=== PATIENT | female | born 1955 | race Caucasian/White ===

== ENCOUNTER 2019-03-10 07:11 | Day surgery (SDC) | payer MEDICARE ==
[2019-03-08 11:48] LABS: BASOPHILS % (AUTO) 0.3 % (0-1); EOSINOPHILS # (AUTO) 0.3 X10'3 (0-0.9); HEMATOCRIT 42.9 % (35.0-45.0); HEMOGLOBIN 14.4 g/dl (12.0-16.0); LYMPHOCYTES # (AUTO) 2.9 X10'3 (1.1-4.8); LYMPHOCYTES % (AUTO) 39.2 % (21-51); MEAN CORPUSCULAR HGB CONC 33.6 g/dL (33.0-36.5); MEAN CORPUSCULAR VOLUME 92.1 FL (78-98); MEAN PLATELET VOLUME 9.4 FL (7.4-10.4); MONOCYTES # (AUTO) 0.6 X10'3 (0-0.9); MONOCYTES % (AUTO) 8.1 % (2-12); NEUTROPHILS # (AUTO) 3.6 X10'3 (1.8-7.7); NEUTROPHILS % (AUTO) 48.4 % (42-75); PLATELET COUNT 233 X10'3 (140-440); RED BLOOD COUNT 4.66 X10'6 (4.20-5.60); RED CELL DISTRIBUTION WIDTH 13.7 % (11.5-14.5); WHITE BLOOD COUNT 7.4 X10'3 (4.5-11.0)
[2019-03-08 11:52] LABS: PARTIAL THROMBOPLASTIN TIME 27 SECONDS (22-32)
[2019-03-08 11:56] LABS: ALANINE AMINOTRANSFERASE 50 U/L (12-78); ALBUMIN 3.9 G/DL (3.4-5.0); ALBUMIN/GLOBULIN RATIO 1.1 (1.1-1.5); ALKALINE PHOSPHATASE 148 IU/L (46-116); ANION GAP 7 (8-16); ASPARTATE AMINO TRANSFERASE 32 U/L (10-37); BILIRUBIN,TOTAL 0.6 MG/DL (0.1-1.0); BLOOD UREA NITROGEN 17 MG/DL (7-18); BUN/CREATININE RATIO 15.9 (6.6-38.0); CHLORIDE 108 MMOL/L (99-107); CREATININE 1.07 MG/DL (0.40-0.90); GLUCOSE 114 MG/DL (70-104); SODIUM 144 MMOL/L (135-145); TOTAL CARBON DIOXIDE 29.3 MMOL/L (24-32); TOTAL PROTEIN 7.5 G/DL (6.4-8.2); eGFR 51 ML/MIN
[2019-03-08 12:09] LABS: POTASSIUM 4.4 MMOL/L (3.5-5.1)
[2019-03-10] VITALS (12 sets, daily range): BP systolic 110–145; BP diastolic 58–76
[~2019-03-10] VITALS: Ht 177.8 cm; Wt 122.2 kg
[~2019-03-10 07:11] MED LIST: ASPI-1265 PO; ATOR10TA PO; HYDR-4383 PO; LISI40TA4 PO; METF500T20 PO
[2019-03-10] MEDS ORDERED: dextrose ORAL solution 15 GM/59 ML bottle PO PRN ×2 (08:00)
[2019-03-10] MEDS ORDERED: MESSAGE TO PHARMACY PO ONE (08:00)
[2019-03-10] MEDS ORDERED: dextrose 50%-water 50ml dispensing syringe IV PRN ×2 (08:00)
[2019-03-10] MEDS ORDERED: insulin Lispro (HumaLOG) vial - multi-dose SQ SCH (08:00)
[2019-03-10] MEDS ORDERED: LORazepam 0.5 MG tablet PO PRN (08:00)
[2019-03-10] MEDS ORDERED: diphenhydrAMINE 25mg capsule PO PRN (08:00)
[2019-03-10] MEDS ORDERED: nitroGLYCERIN 0.4mg SUBLingual tab SL PRN ×2 (08:00→11:50)
[2019-03-10] MEDS ORDERED: normal saline 1,000 ML IV SCH (08:00)
[2019-03-10] MEDS ORDERED: glucagon, human recombinant 1mg kit SUBCUT PRN (08:00)
[2019-03-10] MEDS ORDERED: ATOR40TA71 PO (08:41)
[2019-03-10] MEDS ORDERED: CHOL100046 PO (08:41)
[2019-03-10] MEDS ORDERED: MULT-955 PO (08:41)
[2019-03-10] MEDS ORDERED: ASCO-157 PO (08:41)
[2019-03-10] MEDS ORDERED: LISI1TAB28 PO (08:41)
[2019-03-10] MEDS ORDERED: LIDOcaine 1% (10mg/ml)w/preservative injection 20ml MDV ONE (09:57)
[2019-03-10] MEDS ORDERED: fentaNYL/PF 50MCG/1 ML 2ML syringe ONE (09:57)
[2019-03-10] MEDS ORDERED: midazolam 2 mg/2 ml injection ONE (09:57)
[2019-03-10] MEDS ORDERED: iohexol 350 MG/ML 50ML vial IV ONE (09:58)
[2019-03-10] MEDS ORDERED: iohexol 350MG/ML 100ml bottle IV ONE (09:58)
[2019-03-10] MEDS ORDERED: normal saline 1000ml 1,000 ML IV SCH (11:45)
[2019-03-10] MEDS ORDERED: ondansetron/PF 4mg/2ml inj IV PRN (11:45)
[2019-03-10] MEDS ORDERED: HYDROcodone/acetaminophen 5mg/325mg tablet PO PRN (11:45)
[2019-03-10] MEDS ORDERED: HYDROcodone/acetaminophen 10/325mg tab PO PRN (11:50)
[2019-03-10] MEDS ORDERED: proCHLORperazine 10 MG/2 ml inj IV PRN (11:50)
[2019-03-10] MEDS ORDERED: OXAZEpam 15mg capsule PO PRN (11:50)
[2019-03-10 19:56] LABS: HEMOGLOBIN A1C 6.8 % (4.5-6.2)
[2019-03-10] MEDS ORDERED: insulin glargine (Lantus) pen - multi-dose SQ SCH (21:00)
== END 2019-03-10 17:45 | disposition home or self-care (01) ==
LOC: SSTAY O 07:11
PROVIDERS: ATTEND Internal Medicine Cardiovascular Disease
DX: I25.10 Atherosclerotic heart disease of native coronary artery without angina pectoris (principal); I35.1 Nonrheumatic aortic (valve) insufficiency; E11.9 Type 2 diabetes mellitus without complications; I10 Essential (primary) hypertension; E78.5 Hyperlipidemia, unspecified; Z88.2 Allergy status to sulfonamides
CPT/HCPCS: 36415; 71046; 80053; 82948; 83036; 83880; 85025; 85610; 85730; 93005; 93458; 93567; C1769; J1644; J1815; J2001; J2250; J3010; J7030; Q0163; Q9967; 99152; 99153; A4620; A6258; C1760

== ENCOUNTER 2019-07-13 06:01 | Inpatient (IN) | payer MEDICARE ==
[2019-06-30 11:14] LABS: BASOPHILS % (AUTO) 0.6 % (0-1); EOSINOPHILS # (AUTO) 0.2 X10'3 (0-0.9); EOSINOPHILS % (AUTO) 2.2 % (0-6); HEMATOCRIT 44.1 % (35.0-45.0); HEMOGLOBIN 14.9 g/dl (12.0-16.0); LYMPHOCYTES # (AUTO) 2.6 X10'3 (1.1-4.8); LYMPHOCYTES % (AUTO) 37.7 % (21-51); MEAN CORPUSCULAR HEMOGLOBIN 31.4 PG (27.0-31.0); MEAN CORPUSCULAR HGB CONC 33.8 g/dL (33.0-36.5); MEAN PLATELET VOLUME 8.5 FL (7.4-10.4); MONOCYTES # (AUTO) 0.4 X10'3 (0-0.9); MONOCYTES % (AUTO) 5.9 % (2-12); NEUTROPHILS # (AUTO) 3.7 X10'3 (1.8-7.7); NEUTROPHILS % (AUTO) 53.6 % (42-75); PLATELET COUNT 260 X10'3 (140-440); RED BLOOD COUNT 4.74 X10'6 (4.20-5.60); RED CELL DISTRIBUTION WIDTH 13.6 % (11.5-14.5)
[2019-06-30 11:23] LABS: HEMOGLOBIN A1C 6.8 % (4.5-6.2)
[2019-06-30 11:28] LABS: ALBUMIN 3.9 G/DL (3.4-5.0); ALBUMIN/GLOBULIN RATIO 1.1 (1.1-1.5); ALKALINE PHOSPHATASE 135 IU/L (46-116); BLOOD UREA NITROGEN 29 MG/DL (7-18); BUN/CREATININE RATIO 26.6 (6.6-38.0); CALCIUM 10.5 MG/DL (8.5-10.1); CHLORIDE 106 MMOL/L (99-107); CREATININE 1.09 MG/DL (0.40-0.90); PRE OP ALT 26 U/L (30-65); PRE OP ANION GAP 8 (8-16); PRE OP AST 17 U/L (10-37); PRE OP BILIRUB, TOTAL 0.4 MG/DL (0.0-1.0); PRE OP GLUCOSE 139 MG/DL (70-104); PRE OP POTASSIUM 4.2 MMOL/L (3.4-5.1); PRE OP SODIUM 141 MMOL/L (135-145); TOTAL CARBON DIOXIDE 26.8 MMOL/L (24-32); TOTAL PROTEIN 7.5 G/DL (6.4-8.2); eGFR 50 ML/MIN
[2019-07-13] VITALS (19 sets, daily range): BP systolic 101–144; BP diastolic 45–80
[~2019-07-13] VITALS: Ht 180.3 cm; Wt 121.5 kg
[~2019-07-13 06:01] MED LIST changes: -ATOR10TA PO; +ATOR40TA71 PO; +CHOL100046 PO; -HYDR-4383 PO; +LISI1TAB28 PO; -LISI40TA4 PO; +MULT-955 PO; +cefazolin/dext.iso 2gm/100ml 100 ML IV ONE; +famotidine 20mg tablet PO ONE; +ringers solution, lacted 1,000 ML IV SCH; +tranexamic acid inj. 1,200 MG in normal saline 100ml IV soln 100 ML IV ONE; +vancomycin inj 1,500 MG in normal saline 300ml IV soln IV ONE
[2019-07-13] MEDS ORDERED: mineral oil 10ml sterile, topical TP ONE (08:23)
[2019-07-13] MEDS ORDERED: ROPIVAcaine 0.5% (5mg/ml) 30ml vial ONE ×2 (08:23→10:24)
[2019-07-13] MEDS ORDERED: ketorolac trometh. 30mg/ml inj. ONE (08:23)
[2019-07-13] MEDS ORDERED: tetracaine 1% (10mg/ml) pres. free inj. ONE (09:06)
[2019-07-13] MEDS ORDERED: MIDAZolam 1mg/ml 10ml vial ONE (09:08)
[2019-07-13] MEDS ORDERED: fentaNYL/PF 50MCG/1 ML 2ML syringe ONE (09:08)
[2019-07-13] MEDS ORDERED: morphine /PF 1mg/ml 10ml inj. ONE (09:08)
[2019-07-13] MEDS ORDERED: atropine 0.4 mg/ml 20ml vial ONE (09:24)
[2019-07-13] MEDS ORDERED: ringers solution, lacted 1,000 ML IV SCH (09:58)
[2019-07-13] MEDS ORDERED: ROPIVAcaine 0.2%/PF PUMP/bolus 550 ML ADDCANAL SCH (09:58)
[2019-07-13] MEDS ORDERED: morphine 4 MG/ML inj SYRINge IV PRN ×2 (10:00)
[2019-07-13] MEDS ORDERED: enalaprilat dihydrate 2.5mg/2ml vial IV PRN (10:00)
[2019-07-13] MEDS ORDERED: fentaNYL/PF 50MCG/1 ML 2ML syringe IV PRN ×2 (10:00)
[2019-07-13] MEDS ORDERED: hydrALAZINE 20mg/ml inj. IV PRN (10:00)
[2019-07-13] MEDS ORDERED: ondansetron/PF 4mg/2ml inj IV PRN (10:00)
[2019-07-13] MEDS ORDERED: ePHEDrine 50MG/ML INJ. ONE (10:56)
--- NOTE | 2019-07-13 11:15 | NUR ---
PACU DISCHARGE CRITERIA MET, REPORT GIVEN TO FLOOR. DENIES PAIN OR DISCOMFORT, TRANSFERRED TO ROOM IN STABLE GOOD CONDITION.
[2019-07-13] MEDS ORDERED: HYDROmorphone inj. 0.5 MG/0.5 ML DISP.SYRIN IV PRN (11:55)
[2019-07-13] MEDS ORDERED: acetaminophen 325mg tablet PO PRN (11:55)
[2019-07-13] MEDS ORDERED: bisacodyl 10mg suppository rectal RC PRN (11:55)
[2019-07-13] MEDS ORDERED: diphenhydrAMINE 25mg capsule PO PRN (11:55)
[2019-07-13] MEDS ORDERED: magnesium hydroxide 30ml (MOM) UD suspension PO PRN (11:55)
[2019-07-13] MEDS ORDERED: oxyCODONE IR 5mg (immed. release) tablet PO PRN (11:55)
[2019-07-13] MEDS ORDERED: HYDROmorphone 1 mg/ml syringe IV PRN (11:55)
--- NOTE | 2019-07-13 12:00 | NUR ---
ADMITTED TO PACU FROM OR ACCOMPANIED BY ANESTHESIA. INTIAL PHYSICAL ASSESSMENT DONE AND RECORDED. REPORT RECEIVED FROM ANESTHESIA.
[2019-07-13] MEDS: acetaminophen 325mg tablet PO SCH ×2 (14:00→19:42)
[2019-07-13] MEDS: ondansetron/PF 4mg/2ml inj IV PRN ×2 (14:39→23:54)
[2019-07-13] MEDS ORDERED: NORMAL SALINE IV ONE (15:00)
[2019-07-13] MEDS ORDERED: TRANEXAMIC ACID IV ONE (15:00)
[2019-07-13] MEDS ORDERED: metoclopramide 5 mg/ml inj IV PRN (16:35)
[2019-07-13] MEDS: potassium cl 20mEq in 1/2 NS 1,000 ML IV SCH (17:01)
[2019-07-13] MEDS: ceFAZolin 1GM/D5W- ADD-VANTAGE 50 ML IV SCH ×2 (17:01→23:46)
--- NOTE | 2019-07-13 18:00 | NUR ---
Problems reprioritized. Patient report given, questions answered & plan of care reviewed with DAVIDA VELEZ.
--- NOTE | 2019-07-13 18:25 | NUR ---
Received patient report from ROSIE Snyder. Assumed patient care.
[2019-07-13] MEDS: metFORMIN 500mg tablet PO SCH (19:42)
[2019-07-13] MEDS ORDERED: vancomycin/NS 1 GM ADD-VANTAGE 250 ML IV SCH (20:00)
[2019-07-13] MEDS: sennosides 8.6mg tablet PO SCH (20:50)
[2019-07-14 02:00] VITALS: BP 107/50
[2019-07-14] MEDS: acetaminophen 325mg tablet PO SCH ×4 (02:29→21:27)
[2019-07-14] MEDS: potassium cl 20mEq in 1/2 NS 1,000 ML IV SCH ×4 (05:00→19:53)
[2019-07-14] MEDS: diphenhydrAMINE 25mg capsule PO PRN ×2 (05:01→21:19)
[2019-07-14 06:00] VITALS: BP 111/53
[2019-07-14] MEDS ORDERED: metoclopramide 5 mg/ml inj IV PRN (06:00)
--- NOTE | 2019-07-14 06:08 | NUR ---
Patient report given, questions answered and plan of care reviewed with ROSIE Bro
[2019-07-14 06:20] LABS: BASOPHILS % (AUTO) 0.1 % (0-1); EOSINOPHILS % (AUTO) 0.4 % (0-6); HEMATOCRIT 34.5 % (35.0-45.0); HEMOGLOBIN 11.7 g/dl (12.0-16.0); LYMPHOCYTES # (AUTO) 1.5 X10'3 (1.1-4.8); LYMPHOCYTES % (AUTO) 21.8 % (21-51); MEAN CORPUSCULAR HEMOGLOBIN 31.3 PG (27.0-31.0); MEAN CORPUSCULAR HGB CONC 33.9 g/dL (33.0-36.5); MEAN CORPUSCULAR VOLUME 92.4 FL (78-98); MEAN PLATELET VOLUME 8.9 FL (7.4-10.4); MONOCYTES # (AUTO) 0.6 X10'3 (0-0.9); MONOCYTES % (AUTO) 9.1 % (2-12); NEUTROPHILS # (AUTO) 4.8 X10'3 (1.8-7.7); NEUTROPHILS % (AUTO) 68.6 % (42-75); PLATELET COUNT 191 X10'3 (140-440); RED BLOOD COUNT 3.73 X10'6 (4.20-5.60); RED CELL DISTRIBUTION WIDTH 13.6 % (11.5-14.5); WHITE BLOOD COUNT 7.1 X10'3 (4.5-11.0)
--- NOTE | 2019-07-14 06:30 | NUR ---
Patient in room ORTH[facility] 4014. I have received report from Megan and had the opportunity to ask questions and assume patient care.
[2019-07-14 06:49] LABS: ANION GAP 8 (8-16); CHLORIDE 106 MMOL/L (99-107); POTASSIUM 4.9 MMOL/L (3.5-5.1); SODIUM 139 MMOL/L (135-145); TOTAL CARBON DIOXIDE 25.5 MMOL/L (24-32)
[2019-07-14] MEDS: multivitamins, therapeutics tablet PO SCH (08:18)
[2019-07-14] MEDS: HYDROchlorothiazide 12.5mg capsule PO SCH (08:19)
[2019-07-14] MEDS: metFORMIN 500mg tablet PO SCH ×2 (08:19→21:26)
[2019-07-14] MEDS: atorvastatin 20mg tablet PO SCH (08:20)
[2019-07-14] MEDS: vitamin D (cholecalciferol) 1,000 unit tablet PO SCH (08:22)
[2019-07-14] MEDS: aspirin 325mg tablet PO SCH (08:22)
[2019-07-14] MEDS: lisinopril 20mg tablet PO SCH (09:00)
--- NOTE | 2019-07-14 09:01 | NUR ---
JAIDA RN SPOKE W/RUBÉN BECERRIL SAID TO ADMIN PT LISINIPRIL FOR PT EVEN IF SHE HAS A LOW BP AND A LOW HR, CONTINUE TO MONITOR
[2019-07-14 10:00] VITALS: BP 127/47
--- NOTE | 2019-07-14 11:09 | NUR ---
Student documentation: I have reviewed all interventions, assessments performed and documented by Sukhdeep Phelps. Student Medication Administration: For this medication-pass time frame, all medication were reviewed, dispensed, administered and documented per hospital policy by Sukhdeep Phelps.
--- NOTE | 2019-07-14 11:56 | NUR ---
I gave report to Adali VELEZ .
[2019-07-14 14:00] VITALS: BP 122/51
[2019-07-14] MEDS: oxyCODONE IR 5mg (immed. release) tablet PO PRN ×2 (14:13→21:21)
[2019-07-14 18:00] VITALS: BP 150/69
--- NOTE | 2019-07-14 18:23 | NUR ---
Problems reprioritized. Patient report given, questions answered & plan of care reviewed with Meena.
[2019-07-14] MEDS: sennosides 8.6mg tablet PO SCH (21:19)
[2019-07-14 22:00] VITALS: BP 131/54
[2019-07-15] MEDS: acetaminophen 325mg tablet PO SCH ×2 (02:39→08:28)
[2019-07-15] MEDS: potassium cl 20mEq in 1/2 NS 1,000 ML IV SCH (03:53)
[2019-07-15] MEDS: oxyCODONE IR 5mg (immed. release) tablet PO PRN ×3 (04:59→12:38)
[2019-07-15 06:30] VITALS: BP 150/69
[2019-07-15 06:55] LABS: BASOPHILS % (AUTO) 0.3 % (0-1); EOSINOPHILS # (AUTO) 0.1 X10'3 (0-0.9); EOSINOPHILS % (AUTO) 1.5 % (0-6); HEMATOCRIT 35.7 % (35.0-45.0); HEMOGLOBIN 12.2 g/dl (12.0-16.0); LYMPHOCYTES # (AUTO) 1.8 X10'3 (1.1-4.8); LYMPHOCYTES % (AUTO) 23.3 % (21-51); MEAN CORPUSCULAR HEMOGLOBIN 31.5 PG (27.0-31.0); MEAN CORPUSCULAR HGB CONC 34.2 g/dL (33.0-36.5); MEAN CORPUSCULAR VOLUME 92.1 FL (78-98); MONOCYTES # (AUTO) 0.8 X10'3 (0-0.9); MONOCYTES % (AUTO) 9.9 % (2-12); NEUTROPHILS # (AUTO) 4.9 X10'3 (1.8-7.7); PLATELET COUNT 193 X10'3 (140-440); RED BLOOD COUNT 3.87 X10'6 (4.20-5.60); RED CELL DISTRIBUTION WIDTH 13.1 % (11.5-14.5); WHITE BLOOD COUNT 7.6 X10'3 (4.5-11.0)
--- NOTE | 2019-07-15 07:02 | NUR ---
Patient in room ORTHO 4014. I have received report from Meena VELEZ and had the opportunity to ask questions and assume patient care.
[2019-07-15] MEDS ORDERED: ROPIVAcaine 0.2% (10 MG/5 ML) BOLUS INJECTION ADDCANAL PRN (07:25)
[2019-07-15] MEDS: HYDROchlorothiazide 12.5mg capsule PO SCH (08:23)
[2019-07-15] MEDS: lisinopril 20mg tablet PO SCH (08:24)
[2019-07-15] MEDS: aspirin 325mg tablet PO SCH (08:26)
[2019-07-15] MEDS: atorvastatin 20mg tablet PO SCH (08:26)
[2019-07-15] MEDS: multivitamins, therapeutics tablet PO SCH (08:26)
[2019-07-15] MEDS: metFORMIN 500mg tablet PO SCH (08:26)
[2019-07-15] MEDS: vitamin D (cholecalciferol) 1,000 unit tablet PO SCH (08:26)
[2019-07-15] MEDS ORDERED: ASPI-1 PO (09:08)
[2019-07-15 10:00] VITALS: BP 164/67
[2019-07-15] MEDS ORDERED: acetaminophen 325mg tablet PO PRN (11:55)
--- NOTE | 2019-07-15 12:00 | NUR ---
gave report to Alejandrina VELEZ
--- NOTE | 2019-07-15 12:40 | NUR ---
Joint replacement consult: Pt seen by VELIA for written/verbal high protein ed w/ RD contact information provided. Pt agrees to ensure high protein TIDWM; MD notified. Pending verification prior to sending on trays. Addendum: 07/15/19 at [address] Amended: Links added.
[2019-07-15] MEDS ORDERED: lactose-reduced food (Ensure High Protein) 237ml bottle PO SCH (13:00)
--- NOTE | 2019-07-15 13:40 | NUR ---
Patient taught all dressing and incisional care instructions and had new on-q ball refilled. Patient discharged and taken to vehicle ride in wheel chair.
== END 2019-07-15 13:40 | disposition home health service (06) | DRG 470 ==
LOC: PAS IN 06:01 → EDSTATUS 09:00 → ORTHO 4S 13:10
PROVIDERS: ADMIT Orthopaedic Surgery; ATTEND Orthopaedic Surgery
PROC: 3E0T3BZ Introduction of Anesthetic Agent into Peripheral Nerves and Plexi, Percutaneous Approach (ICD-10-PCS; 2019-07-13)
PROC: 8E0YXBZ Computer Assisted Procedure of Lower Extremity (ICD-10-PCS; 2019-07-13)
PROC: 8E0YXCZ Robotic Assisted Procedure of Lower Extremity (ICD-10-PCS; 2019-07-13)
PROC: 0SRC069 Replacement of Right Knee Joint with Oxidized Zirconium on Polyethylene Synthetic Substitute, Cemented, Open Approach (ICD-10-PCS; principal; 2019-07-13 09:00)
DX: M17.11 Unilateral primary osteoarthritis, right knee (principal); D62 Acute posthemorrhagic anemia; E66.01 Morbid (severe) obesity due to excess calories; E78.5 Hyperlipidemia, unspecified; R11.2 Nausea with vomiting, unspecified; Z68.37 Body mass index [BMI] 37.0-37.9, adult; E11.22 Type 2 diabetes mellitus with diabetic chronic kidney disease; I12.9 Hypertensive chronic kidney disease with stage 1 through stage 4 chronic kidney disease, or unspecified chronic kidney disease; N18.9 Chronic kidney disease, unspecified; Z88.2 Allergy status to sulfonamides; Z87.891 Personal history of nicotine dependence; Z79.899 Other long term (current) drug therapy; Z79.82 Long term (current) use of aspirin
CPT/HCPCS: 36415; 80051; 80053; 82948; 83036; 85025; 87081; 97110; 97116; 97162; 97530; 97535; A4215; A6454; A7000; C1713; C1758; C1776; G0378; J0461; J0690; J1170; J1885; J2250; J2270; J2405; J2765; J2795; J3010; J3370; J3480; J7120; Q0163

== ENCOUNTER 2020-01-06 07:05 | Observation (INO) | payer MEDICARE ==
[2020-01-04 14:25] LABS: BASOPHILS % (AUTO) 0.3 % (0-1); EOSINOPHILS # (AUTO) 0.4 X10'3 (0-0.9); EOSINOPHILS % (AUTO) 5.5 % (0-6); LYMPHOCYTES # (AUTO) 2.8 X10'3 (1.1-4.8); LYMPHOCYTES % (AUTO) 36.2 % (21-51); MEAN CORPUSCULAR HEMOGLOBIN 30.6 PG (27.0-31.0); MEAN CORPUSCULAR HGB CONC 33.5 g/dL (33.0-36.5); MEAN CORPUSCULAR VOLUME 91.5 FL (78-98); MEAN PLATELET VOLUME 8.8 FL (7.4-10.4); MONOCYTES # (AUTO) 0.5 X10'3 (0-0.9); MONOCYTES % (AUTO) 6.5 % (2-12); NEUTROPHILS % (AUTO) 51.5 % (42-75); PRE OP HEMATOCRIT 42.6 % (35.0-45.0); PRE OP HEMOGLOBIN 14.3 g/dL (12.0-16.0); PRE OP PLATELET COUNT 260 X10'3 (140-440); RED BLOOD COUNT 4.66 X10'6 (4.20-5.60); RED CELL DISTRIBUTION WIDTH 14.1 % (11.5-14.5)
[2020-01-04 14:41] LABS: ALBUMIN 3.7 G/DL (3.4-5.0); ALKALINE PHOSPHATASE 144 IU/L (46-116); BLOOD UREA NITROGEN 19 MG/DL (7-18); BUN/CREATININE RATIO 14.4 (6.6-38.0); CALCIUM 10.1 MG/DL (8.5-10.1); CHLORIDE 107 MMOL/L (99-107); CREATININE 1.32 MG/DL (0.40-0.90); PRE OP ALT 18 U/L (30-65); PRE OP ANION GAP 7 (8-16); PRE OP AST 13 U/L (10-37); PRE OP BILIRUB, TOTAL 0.3 MG/DL (0.0-1.0); PRE OP POTASSIUM 4.2 MMOL/L (3.4-5.1); PRE OP SODIUM 142 MMOL/L (135-145); TOTAL CARBON DIOXIDE 27.8 MMOL/L (24-32); TOTAL PROTEIN 7.3 G/DL (6.4-8.2); eGFR 40 ML/MIN
[2020-01-04 14:44] LABS: PRE OP GLUCOSE 127 MG/DL (70-104)
[2020-01-06] VITALS (23 sets, daily range): BP systolic 125–166; BP diastolic 61–83
[~2020-01-06] VITALS: Ht 180.3 cm; Wt 120.3 kg
[~2020-01-06 07:05] MED LIST changes: -ASPI-1265 PO; +LIDOcaine 1% 30ml preserv. free vial ONE; +METF-900 PO; -METF500T20 PO; -cefazolin/dext.iso 2gm/100ml 100 ML IV ONE; -tranexamic acid inj. 1,200 MG in normal saline 100ml IV soln 100 ML IV ONE; -vancomycin inj 1,500 MG in normal saline 300ml IV soln IV ONE
[2020-01-06] MEDS ORDERED: ASPI-100 PO (08:00)
[2020-01-06] MEDS ORDERED: cefazolin/dext.iso 2gm/50ml 50 ML IV ONE (08:55)
[2020-01-06] MEDS ORDERED: ringers solution, lacted 1,000 ML IV SCH (09:58)
[2020-01-06] MEDS ORDERED: meperidine/PF 25mg/ml syringe IV PRN ×3 (10:00)
[2020-01-06] MEDS ORDERED: morphine 4 MG/ML inj SYRINge IV PRN (10:00)
[2020-01-06] MEDS ORDERED: ondansetron/PF 4mg/2ml inj IV PRN ×2 (10:00→11:45)
[2020-01-06] MEDS ORDERED: morphine 2 MG/ML inj. syringe IV PRN (10:00)
[2020-01-06] MEDS ORDERED: proCHLORperazine 10 MG/2 ml inj IV PRN (10:00)
[2020-01-06] MEDS ORDERED: sevoflurane 250ml liquid IH ONE (10:17)
[2020-01-06] MEDS ORDERED: fentaNYL/PF 50MCG/1 ML 2ML syringe ONE (10:22)
[2020-01-06] MEDS ORDERED: midazolam 2 mg/2 ml injection ONE (10:22)
[2020-01-06] MEDS ORDERED: propofol inj 20 ML IV ONE (11:34)
--- NOTE | 2020-01-06 11:50 | NUR ---
Received from OR via BED, accompanied by Anesthesiologist DR SETH-- and report given by Anesthesiolgist. PATIENT A&OX4, DENIES PAIN, V/S WNL, NEUROVASCULAR CHECKS INTACT, 20G PIV RUE, SCD ON, RIGHT CHEST DRESSING CDI WITH 1LITER BAG APPLIED FOR PRESSURE PER MD. CXR AND DIGITAL IMAGING TECHNICIAN PAGED
--- NOTE | 2020-01-06 13:30 | NUR ---
PATIENT A&OX4, DENIES PAIN, V/S WNL, NEUROVASCULAR CHECKS INTACT, 20G PIV RUE, SCD ON, RIGHT CHEST DRESSING CDI WITH 1LITER BAG APPLIED FOR PRESSURE PER MD. PATIENT TAKEN TO 3021 WITH ALL BELONGINGS AND HOOKED UP TO MONITORS IN ROOM AND REPORT GIVEN TO RN WHO HAS TAKEN OVER PATIENT CARE.
[2020-01-06] MEDS ORDERED: diphenhydrAMINE 25mg capsule PO ONE (14:10)
[2020-01-06] MEDS ORDERED: normal saline 1000ml 1,000 ML IV SCH (14:10)
[2020-01-06] MEDS ORDERED: LORazepam 1 MG tablet PO ONE (14:10)
[2020-01-06] MEDS ORDERED: ceFAZolin inj. 1,000 MG in dextrose 5%-water 50ml 50 ML IV SCH (16:00)
[2020-01-06] MEDS: HYDROcodone/acetaminophen 10/325mg tab PO PRN ×2 (16:18→20:35)
[2020-01-06] MEDS: metFORMIN 500mg tablet PO SCH (20:35)
[2020-01-07] MEDS: ceFAZolin 1GM/D5W- ADD-VANTAGE 50 ML IV SCH ×2 (00:32→10:33)
[2020-01-07] MEDS: HYDROcodone/acetaminophen 10/325mg tab PO PRN (01:43)
[2020-01-07 02:00] VITALS: BP 126/71
--- NOTE | 2020-01-07 02:06 | NUR ---
MOVED TO MED SURG 345 WITH BELONGINGS
[2020-01-07 06:05] LABS: BASOPHILS % (AUTO) 0.1 % (0-1); EOSINOPHILS # (AUTO) 0.3 X10'3 (0-0.9); EOSINOPHILS % (AUTO) 3.8 % (0-6); HEMATOCRIT 39.9 % (35.0-45.0); HEMOGLOBIN 13.1 g/dl (12.0-16.0); LYMPHOCYTES # (AUTO) 2.3 X10'3 (1.1-4.8); LYMPHOCYTES % (AUTO) 28.1 % (21-51); MEAN CORPUSCULAR HEMOGLOBIN 30.5 PG (27.0-31.0); MEAN CORPUSCULAR HGB CONC 32.9 g/dL (33.0-36.5); MEAN CORPUSCULAR VOLUME 92.5 FL (78-98); MEAN PLATELET VOLUME 8.7 FL (7.4-10.4); MONOCYTES # (AUTO) 0.6 X10'3 (0-0.9); MONOCYTES % (AUTO) 7.7 % (2-12); NEUTROPHILS # (AUTO) 4.9 X10'3 (1.8-7.7); NEUTROPHILS % (AUTO) 60.3 % (42-75); PLATELET COUNT 206 X10'3 (140-440); RED BLOOD COUNT 4.32 X10'6 (4.20-5.60); RED CELL DISTRIBUTION WIDTH 14.1 % (11.5-14.5); WHITE BLOOD COUNT 8.2 X10'3 (4.5-11.0)
--- NOTE | 2020-01-07 06:29 | NUR ---
Patient in room [facility] 357. I have received report from Elvia VELEZ and had the opportunity to ask questions and assume patient care.
--- NOTE | 2020-01-07 06:37 | NUR ---
Problems reprioritized. Patient report given, questions answered & plan of care reviewed with Mary VELEZ.
[2020-01-07 07:00] VITALS: BP 121/70
[2020-01-07] MEDS ORDERED: multivitamins, therapeutics tablet PO SCH (08:00)
[2020-01-07] MEDS ORDERED: lisinopril 20mg tablet PO SCH (08:00)
[2020-01-07] MEDS ORDERED: atorvastatin 20mg tablet PO SCH (08:00)
[2020-01-07] MEDS ORDERED: HYDROchlorothiazide 12.5mg capsule PO SCH (08:00)
[2020-01-07] MEDS ORDERED: vitamin D (cholecalciferol) 1,000 unit tablet PO SCH (08:00)
[2020-01-07] MEDS ORDERED: aspirin 325mg tablet PO SCH (08:30)
[2020-01-07 09:10] VITALS: BP_SYST 121
[2020-01-07] MEDS: metFORMIN 500mg tablet PO SCH (09:11)
--- NOTE | 2020-01-07 13:24 | NUR ---
Discharge instructions given to patient, patient verbalized understanding of all instructions made. Peripheral IV catheter removed, tip intact. Pacemaker temporary card given to patient, advised patient to put it in her wallet and to carry it with her at all times. Instructed patient to ensure she has all her belongings with her before leaving the hospital.
== END 2020-01-07 13:36 | disposition home or self-care (01) ==
LOC: PAS 07:05 → PCU 3S 11:42 → SUR 3N 01-07 02:00
PROVIDERS: ADMIT Surgery; ATTEND Surgery
DX: I49.5 Sick sinus syndrome (principal); I48.91 Unspecified atrial fibrillation; I10 Essential (primary) hypertension; R06.02 Shortness of breath; R42 Dizziness and giddiness; E11.9 Type 2 diabetes mellitus without complications; E66.09 Other obesity due to excess calories; Z68.30 Body mass index [BMI] 30.0-30.9, adult
CPT/HCPCS: 33208; 36415; 71045; 71048; 76000; 76937; 80053; 82948; 83036; 85025; 85610; 85730; 87081; 93005; 96365; 96366; 96375; C1785; G0378; J0690; J2001; J2175; J2250; J2405; J2704; J3010; J7060; J7120; A4215; A4565; A4618; A6258; A6449; A7000

== ENCOUNTER 2020-12-25 15:06 | Outpatient (CLI) | payer MEDICARE ==
[~2020-12-25 15:06] MED LIST changes: +ASPI-100 PO; -LIDOcaine 1% 30ml preserv. free vial ONE; -LISI1TAB28 PO; +LISI1TAB51 PO; -famotidine 20mg tablet PO ONE; -ringers solution, lacted 1,000 ML IV SCH
== END 2020-12-25 23:59 | disposition home or self-care (01) ==
LOC: CARD DIAG 15:06
PROVIDERS: ATTEND Internal Medicine Cardiovascular Disease
DX: I08.3 Combined rheumatic disorders of mitral, aortic and tricuspid valves (principal)
CPT/HCPCS: 93306

== ENCOUNTER 2021-04-11 15:02 | Inpatient (IN) | payer MEDICARE ==
[~2021-04-11] VITALS: Ht 180.3 cm; Wt 134.2 kg
[2021-04-11] MEDS ORDERED: acetaminophen 325mg tablet PO STA (15:27)
[2021-04-11] MEDS ORDERED: morphine 4 MG/ML inj SYRINge IV PRN (15:30)
[2021-04-11] MEDS ORDERED: ondansetron/PF 4mg/2ml inj IV ONE (15:30)
[2021-04-11] MEDS ORDERED: normal saline 1000ML IV soln IV ONE (15:30)
[2021-04-11 16:12] LABS: BASOPHILS % (AUTO) 0.2 % (0-1); EOSINOPHILS % (AUTO) 0 % (0-6); HEMATOCRIT 43.2 % (35.0-45.0); HEMOGLOBIN 14.5 g/dl (12.0-16.0); LYMPHOCYTES # (AUTO) 1.2 X10'3 (1.1-4.8); LYMPHOCYTES % (AUTO) 9.2 % (21-51); MEAN CORPUSCULAR HEMOGLOBIN 30.6 PG (27.0-31.0); MEAN CORPUSCULAR HGB CONC 33.5 g/dL (33.0-36.5); MEAN CORPUSCULAR VOLUME 91.3 FL (78-98); MEAN PLATELET VOLUME 8.9 FL (7.4-10.4); MONOCYTES # (AUTO) 1.1 X10'3 (0-0.9); MONOCYTES % (AUTO) 8.5 % (2-12); NEUTROPHILS # (AUTO) 10.8 X10'3 (1.8-7.7); NEUTROPHILS % (AUTO) 82.1 % (42-75); PLATELET COUNT 309 X10'3 (140-440); RED BLOOD COUNT 4.73 X10'6 (4.20-5.60); RED CELL DISTRIBUTION WIDTH 13.5 % (11.5-14.5); WHITE BLOOD COUNT 13.1 X10'3 (4.5-11.0)
[2021-04-11 16:24] LABS: ALANINE AMINOTRANSFERASE 331 U/L (12-78); ALBUMIN 3.5 G/DL (3.4-5.0); ALKALINE PHOSPHATASE 450 IU/L (46-116); ANION GAP 16 (8-16); ASPARTATE AMINO TRANSFERASE 168 U/L (10-37); BILIRUBIN,TOTAL 5.5 MG/DL (0.1-1.0); BLOOD UREA NITROGEN 10 MG/DL (7-18); BUN/CREATININE RATIO 7.6 (6.6-38.0); CALCIUM 10.2 MG/DL (8.5-10.1); CHLORIDE 98 MMOL/L (99-107); CREATININE 1.31 MG/DL (0.40-0.90); GLUCOSE 264 MG/DL (70-104); LIPASE 182 U/L (73-393); SODIUM 136 MMOL/L (135-145); TOTAL CARBON DIOXIDE 22.5 MMOL/L (24-32); eGFR 40 ML/MIN
[2021-04-11 16:28] LABS: ALBUMIN/GLOBULIN RATIO 0.8 (1.1-1.5); POTASSIUM 3.8 MMOL/L (3.5-5.1); TOTAL PROTEIN 8.1 G/DL (6.4-8.2)
[2021-04-11] MEDS ORDERED: morphine 4 MG/ML inj SYRINge IV ONE (16:40)
[2021-04-11] MEDS ORDERED: piperacillin/tazo 3.375gm/50ml 50 ML IV ONE (16:40)
[2021-04-11] MEDS ORDERED: diphenhydrAMINE 50 mg/ml inj IV ONE (17:15)
--- NOTE | 2021-04-11 17:47 | NUR ---
pt will be going for ercp tomm around 1500.
[2021-04-11] MEDS ORDERED: METF-436 PO (17:53)
[2021-04-11] MEDS ORDERED: ASPI81TA47 PO (17:53)
[2021-04-11] MEDS ORDERED: ASCO500C17 PO (17:53)
[2021-04-11] MEDS ORDERED: LEVO88TA39 PO (17:53)
[2021-04-11] MEDS ORDERED: dextrose ORAL solution 15 GM/59 ML bottle PO PRN ×2 (18:05)
[2021-04-11] MEDS: normal saline 1000ml 1,000 ML IV SCH (18:05)
[2021-04-11] MEDS ORDERED: magnesium 2GM in 50ml NS 50 ML IV PRN (18:05)
[2021-04-11] MEDS ORDERED: magnesium 4gm in 100ml NS 100 ML IV PRN (18:05)
[2021-04-11] MEDS ORDERED: potassium Cl 40MEQ/1/2NS 520ml 520 ML IV PRN ×2 (18:05)
[2021-04-11] MEDS ORDERED: MESSAGE TO PHARMACY PO ONE (18:05)
[2021-04-11] MEDS ORDERED: dextrose 50%-water 50ml dispensing syringe IV PRN ×2 (18:05)
[2021-04-11] MEDS ORDERED: glucagon, human recombinant 1mg kit SUBCUT PRN (18:05)
[2021-04-11] MEDS ORDERED: acetaminophen 325mg tablet PO PRN (18:05)
[2021-04-11] MEDS ORDERED: potassium Cl 20 mEq SR tablet PO PRN ×2 (18:05)
[2021-04-11] MEDS ORDERED: insulin Lispro (HumaLOG) vial - multi-dose SQ SCH (18:05)
[2021-04-11] MEDS ORDERED: hydrALAZINE 20mg/ml inj. IV PRN (18:35)
[2021-04-11 18:42] LABS: HEMOGLOBIN A1C 7.9 % (4.5-6.2)
[2021-04-11] MEDS: K and/or MAG REPLACEMENT MC SCH (20:00)
[2021-04-11 20:48] LABS: CLARITY,URINE CLEAR (Clear); COLOR,URINE AMBER (Yellow); UA COLLECTION TYPE NON-SPECIFIED
[2021-04-11 20:53] LABS: WBC,URINE 0-4 /HPF (0-4)
[2021-04-11 20:54] LABS: BACTERIA,URINE NONE SEEN /HPF (Neg); RBC,URINE NONE SEEN /HPF (0-2); SQUAMOUS EPITHELIAL CELL,UR FEW /LPF (FEW)
[2021-04-11] MEDS: enoxaparin 40mg/0.4ml syringe SQ SCH (21:09)
[2021-04-11] MEDS: insulin glargine (Lantus) pen - multi-dose SQ SCH (21:17)
[2021-04-12] VITALS (12 sets, daily range): BP systolic 101–150; BP diastolic 49–103
[2021-04-12] MEDS: piperacillin/tazo 4.5gm/100ml 100 ML IV SCH ×4 (00:52→23:54)
[2021-04-12] MEDS: normal saline 1000ml 1,000 ML IV SCH ×2 (04:05→14:00)
[2021-04-12 04:36] LABS: BASOPHILS % (AUTO) 0.1 % (0-1); EOSINOPHILS % (AUTO) 0.3 % (0-6); HEMATOCRIT 38.6 % (35.0-45.0); HEMOGLOBIN 12.8 g/dl (12.0-16.0); LYMPHOCYTES # (AUTO) 1.4 X10'3 (1.1-4.8); LYMPHOCYTES % (AUTO) 15.3 % (21-51); MEAN CORPUSCULAR HEMOGLOBIN 30.5 PG (27.0-31.0); MEAN CORPUSCULAR HGB CONC 33.1 g/dL (33.0-36.5); MEAN CORPUSCULAR VOLUME 92.3 FL (78-98); MONOCYTES # (AUTO) 1.2 X10'3 (0-0.9); MONOCYTES % (AUTO) 13.2 % (2-12); NEUTROPHILS # (AUTO) 6.4 X10'3 (1.8-7.7); NEUTROPHILS % (AUTO) 71.1 % (42-75); PLATELET COUNT 252 X10'3 (140-440); RED BLOOD COUNT 4.19 X10'6 (4.20-5.60); RED CELL DISTRIBUTION WIDTH 13.3 % (11.5-14.5); WHITE BLOOD COUNT 9.1 X10'3 (4.5-11.0)
[2021-04-12 04:54] LABS: ALANINE AMINOTRANSFERASE 246 U/L (12-78); ALBUMIN 2.7 G/DL (3.4-5.0); ALKALINE PHOSPHATASE 421 IU/L (46-116); ANION GAP 11 (8-16); ASPARTATE AMINO TRANSFERASE 144 U/L (10-37); BILIRUBIN,TOTAL 5.3 MG/DL (0.1-1.0); BLOOD UREA NITROGEN 12 MG/DL (7-18); BUN/CREATININE RATIO 8.6 (6.6-38.0); CALCIUM 9.7 MG/DL (8.5-10.1); CHLORIDE 101 MMOL/L (99-107); CREATININE 1.39 MG/DL (0.40-0.90); GLUCOSE 186 MG/DL (70-104); SODIUM 139 MMOL/L (135-145); TOTAL CARBON DIOXIDE 27.5 MMOL/L (24-32); eGFR 38 ML/MIN
[2021-04-12 05:09] LABS: ALBUMIN/GLOBULIN RATIO 0.7 (1.1-1.5); POTASSIUM 3.5 MMOL/L (3.5-5.1); TOTAL PROTEIN 6.8 G/DL (6.4-8.2)
--- NOTE | 2021-04-12 06:04 | NUR ---
standing scale weight 124.4
[2021-04-12] MEDS: ondansetron/PF 4mg/2ml inj IV PRN ×2 (06:09→17:53)
[2021-04-12] MEDS: K and/or MAG REPLACEMENT MC SCH ×2 (08:00→20:00)
--- NOTE | 2021-04-12 09:38 | NUR ---
Noted pt with a low BMI of 17.5 using documented wt of 56.82 kg. Per red leader standing scale weight 124.4 though no unit of measurement (kg vs lbs). Per scaled wt hx in EMR pt 121.5 kg. Likely wt in red leader meant to be in kg given more consistent with wt hx in EMR, resulting in BMI of 38. Will continue to follow. Addendum: 04/12/21 at [address] Amended: Links added.
[2021-04-12] MEDS ORDERED: glucagon, human recombinant 1mg kit ONE (15:18)
[2021-04-12] MEDS ORDERED: iohexol 300 MG/1 ML 50ml polymer ONE (15:18)
[2021-04-12] MEDS ORDERED: morphine 4 MG/ML inj SYRINge IV PRN (15:25)
[2021-04-12] MEDS ORDERED: morphine 2 MG/ML inj. syringe IV PRN (15:25)
[2021-04-12] MEDS ORDERED: meperidine/PF 25mg/ml syringe IV PRN ×3 (15:25)
[2021-04-12] MEDS ORDERED: ringers solution, lacted 1,000 ML IV SCH (15:25)
[2021-04-12] MEDS ORDERED: ondansetron/PF 4mg/2ml inj IV PRN (15:25)
[2021-04-12] MEDS ORDERED: proCHLORperazine 10 MG/2 ml inj IV PRN (15:25)
[2021-04-12] MEDS ORDERED: sevoflurane 250ml liquid IH ONE (15:54)
[2021-04-12] MEDS ORDERED: midazolam 1 mg/ML 2ml injection ONE (15:57)
[2021-04-12] MEDS ORDERED: propofol inj 20 ML IV ONE (15:57)
[2021-04-12] MEDS ORDERED: fentaNYL/PF 50MCG/1 ML 2ML syringe ONE (15:57)
[2021-04-12] MEDS ORDERED: rocuronium 10mg/ml inj IV ONE (16:55)
[2021-04-12] MEDS ORDERED: neostigmine methylsulfate 1 MG/ML 10ml vial ONE (16:55)
[2021-04-12] MEDS ORDERED: glycopyrrolate 0.2mg/ml inj ONE (16:56)
--- NOTE | 2021-04-12 17:08 | NUR ---
ASSUME CARE PT AWAKE VSS NO DISTRESS IV RAC 20G PATIENT. CONT TO MONITOR. Addendum: 04/12/21 at 1718 by Silvia Boo RN Amended: Links added.
--- NOTE | 2021-04-12 17:29 | NUR ---
PT AWAKE ALERT VSS NO DISTRESS NO PAIN THOMAS PO'S MEETS CRITERIA TO DC TO ROOM REPORT CALLED. Addendum: 04/12/21 at 1730 by Silvia Boo RN Amended: Links added.
--- NOTE | 2021-04-12 17:29 | NUR ---
PT MORE AWAKE VSS NO C/O THOMAS SINCLAIR'S MEETS CRITERIA TO DC TO ROOM REP Addendum: 04/12/21 at 1730 by Silvia Boo RN Amended: Links added.
--- NOTE | 2021-04-12 17:34 | NUR ---
GOT REPORT FROM RECOVERY, AWAITING PATIENTS ARRIVAL TO 4009C, MOVED FROM SURGICAL 349B
--- NOTE | 2021-04-12 18:44 | NUR ---
REPORT GIVEN TO JT. PT DOING WELL AT THIS TIME, NO MORE NAUSEA. CLEAR LIQUID DIET ORDERED. NPO AFTER MN
[2021-04-12] MEDS: enoxaparin 40mg/0.4ml syringe SQ SCH (21:16)
[2021-04-12] MEDS: insulin glargine (Lantus) pen - multi-dose SQ SCH (21:18)
[2021-04-13] VITALS (14 sets, daily range): BP systolic 107–183; BP diastolic 57–88
[2021-04-13] MEDS: normal saline 1000ml 1,000 ML IV SCH ×3 (00:05→20:05)
--- NOTE | 2021-04-13 01:50 | NUR ---
Patient in room ORTH[facility] 4009. I have received report from Adali VELEZ and had the opportunity to ask questions and assume patient care.
--- NOTE | 2021-04-13 06:32 | NUR ---
Problems reprioritized. Patient report given, questions answered & plan of care reviewed with Flora VELEZ.
[2021-04-13 06:37] LABS: BASOPHILS % (AUTO) 0.2 % (0-1); EOSINOPHILS # (AUTO) 0.1 X10'3 (0-0.9); HEMATOCRIT 33.7 % (35.0-45.0); HEMOGLOBIN 11.4 g/dl (12.0-16.0); LYMPHOCYTES # (AUTO) 1.3 X10'3 (1.1-4.8); LYMPHOCYTES % (AUTO) 23.2 % (21-51); MEAN CORPUSCULAR HEMOGLOBIN 30.9 PG (27.0-31.0); MEAN CORPUSCULAR HGB CONC 33.8 g/dL (33.0-36.5); MEAN CORPUSCULAR VOLUME 91.3 FL (78-98); MEAN PLATELET VOLUME 8.6 FL (7.4-10.4); MONOCYTES # (AUTO) 0.6 X10'3 (0-0.9); MONOCYTES % (AUTO) 10.6 % (2-12); NEUTROPHILS # (AUTO) 3.7 X10'3 (1.8-7.7); PLATELET COUNT 230 X10'3 (140-440); RED BLOOD COUNT 3.69 X10'6 (4.20-5.60); RED CELL DISTRIBUTION WIDTH 13.2 % (11.5-14.5); WHITE BLOOD COUNT 5.7 X10'3 (4.5-11.0)
--- NOTE | 2021-04-13 06:37 | NUR ---
Patient in room ORTH[facility] 4009. I have received report from ROSIE Joyce and had the opportunity to ask questions and assume patient care.
[2021-04-13 06:59] LABS: ALANINE AMINOTRANSFERASE 187 U/L (12-78); ALBUMIN 2.2 G/DL (3.4-5.0); ALBUMIN/GLOBULIN RATIO 0.6 (1.1-1.5); ALKALINE PHOSPHATASE 373 IU/L (46-116); ANION GAP 9 (8-16); ASPARTATE AMINO TRANSFERASE 105 U/L (10-37); BILIRUBIN,TOTAL 3.1 MG/DL (0.1-1.0); BLOOD UREA NITROGEN 14 MG/DL (7-18); BUN/CREATININE RATIO 9.3 (6.6-38.0); CALCIUM 9.2 MG/DL (8.5-10.1); CHLORIDE 108 MMOL/L (99-107); CREATININE 1.51 MG/DL (0.40-0.90); GLUCOSE 122 MG/DL (70-104); MAGNESIUM 2.1 MG/DL (1.5-2.4); POTASSIUM 3.5 MMOL/L (3.5-5.1); SODIUM 142 MMOL/L (135-145); TOTAL CARBON DIOXIDE 25.5 MMOL/L (24-32); TOTAL PROTEIN 6.1 G/DL (6.4-8.2); eGFR 34 ML/MIN
[2021-04-13] MEDS: piperacillin/tazo 4.5gm/100ml 100 ML IV SCH ×2 (07:28→16:00)
[2021-04-13] MEDS: K and/or MAG REPLACEMENT MC SCH ×2 (08:00→20:00)
[2021-04-13] MEDS ORDERED: hydrOXYzine 25 MG tablet PO PRN (10:30)
--- NOTE | 2021-04-13 12:02 | NUR ---
DM Consult: Pt admit DX sepsis r/t cholangitis w/ common bile duct stones s/p ERCP stone extraction and stent placement per EMR. Pt to OR today for gallbladder removal per EMR. Hx T2DM A1C 7.9; written DM ed w/ RD contact information placed in pt chart. Noted pt initial wt 56.82kg not scaled error w/ first scaled wt 134.2kg consistent w/ prior wt hx making BMI 41. Clear liquid diet started last night w/ 100% first meal. Will monitor for diet advancement and additional protein needs this admit. Rec: 1. advance diet as medically indicated to carb controlled/heart healthy 2. monitor for ONS needs once diet advances pending PO hx 3. routine bowel care 4. weekly wts Addendum: 04/13/21 at [address] Amended: Links added.
[2021-04-13] MEDS ORDERED: INDOCYANINE GREEN 25 MG/10 ML VIAL IV ONE (13:00)
[2021-04-13] MEDS ORDERED: proCHLORperazine 10 MG/2 ml inj IV PRN (13:45)
[2021-04-13] MEDS ORDERED: meperidine/PF 25mg/ml syringe IV PRN ×3 (13:45)
[2021-04-13] MEDS ORDERED: morphine 4 MG/ML inj SYRINge IV PRN (13:45)
[2021-04-13] MEDS ORDERED: acetaminophen 1,000mg/100ml IV 100 ML IV PRN (13:45)
[2021-04-13] MEDS ORDERED: ringers solution, lacted 1,000 ML IV SCH (13:45)
[2021-04-13] MEDS ORDERED: hydrALAZINE 20mg/ml inj. IV PRN (13:45)
[2021-04-13] MEDS ORDERED: labetalol 20mg/4ml (5mg/ml) syringe IV PRN (13:45)
[2021-04-13] MEDS ORDERED: morphine 2 MG/ML inj. syringe IV PRN (13:45)
[2021-04-13] MEDS ORDERED: ondansetron/PF 4mg/2ml inj IV PRN (13:45)
[2021-04-13] MEDS ORDERED: BUPIVAcaine 0.5% inj/PF 30 ML ONE (13:48)
[2021-04-13] MEDS ORDERED: LIDOcaine 1% 30ml preserv. free vial ONE (13:48)
--- NOTE | 2021-04-13 15:19 | NUR ---
Pt transferred to OR via hospital bed. Belongings left in room 4009C.
[2021-04-13] MEDS ORDERED: sevoflurane 250ml liquid IH ONE (15:34)
[2021-04-13] MEDS ORDERED: midazolam 1 mg/ML 2ml injection ONE (15:38)
[2021-04-13] MEDS ORDERED: fentaNYL /PF 50mcg/ml 5ml ampule ONE (15:41)
[2021-04-13] MEDS ORDERED: famotidine/PF 10 mg/ml inj IV ONE (15:45)
[2021-04-13] MEDS ORDERED: rocuronium 10mg/ml inj IV ONE (15:55)
[2021-04-13] MEDS ORDERED: LIDOcaine 2% (20mg/ml) 5ml vial ONE (15:55)
[2021-04-13] MEDS ORDERED: propofol inj 20 ML IV ONE (15:55)
[2021-04-13] MEDS ORDERED: dexamethasone sod phosphate 4mg/ml inj. ONE (16:04)
[2021-04-13] MEDS ORDERED: ondansetron/PF 4mg/2ml inj ONE (16:04)
[2021-04-13] MEDS ORDERED: sugammadex 200mg/2ml injection IV ONE (16:47)
--- NOTE | 2021-04-13 17:09 | NUR ---
ASSUME CARE VSS NO DISTRESS, LAP SITES TO ABD CDI, DENIES PAIN, IV TO R ARM CDI, PATIENT. CONT TO MONITOR. ACCU CHECK 117 Addendum: 04/13/21 at 1736 by Silvia Boo RN Amended: Links added.
[2021-04-13] MEDS ORDERED: HYDROcodone/acetaminophen 5mg/325mg tablet PO PRN (17:25)
[2021-04-13] MEDS: ondansetron/PF 4mg/2ml inj IV PRN (17:32)
--- NOTE | 2021-04-13 17:39 | NUR ---
PT MORE AWAKE VSS NO PAIN STATES NAUSEA BETTER MEETS CRITERIA TO DC TO ROOM CALLING REPORT TO ROSIE Addendum: 04/13/21 at 1740 by Silvia Boo RN Amended: Links added.
--- NOTE | 2021-04-13 17:50 | NUR ---
PRIOR TO [id number] TO ROOM PT C/O NAUSEA COMPAZINE 5MG IV PER ORDER Addendum: 04/13/21 at 1752 by Silvia Boo RN Amended: Links added.
--- NOTE | 2021-04-13 18:13 | NUR ---
Pt back from OR
--- NOTE | 2021-04-13 18:27 | NUR ---
Problems reprioritized. Patient report given, questions answered & plan of care reviewed with ROSIE Joyce.
[2021-04-13] MEDS: HYDROmorphone inj. 0.5 MG/0.5 ML DISP.SYRIN IV PRN (19:18)
[2021-04-13] MEDS: lactobacillus rhamnosus 10,000 MMU CELLS/CAPSULE PO SCH (20:00)
[2021-04-13] MEDS: enoxaparin 40mg/0.4ml syringe SQ SCH (20:00)
[2021-04-13] MEDS: insulin glargine (Lantus) pen - multi-dose SQ SCH (21:33)
[2021-04-14] MEDS: HYDROmorphone inj. 0.5 MG/0.5 ML DISP.SYRIN IV PRN (00:08)
[2021-04-14] MEDS: normal saline 1000ml 1,000 ML IV SCH ×2 (00:16→10:09)
[2021-04-14] MEDS: piperacillin/tazo 4.5gm/100ml 100 ML IV SCH ×2 (00:16→07:36)
[2021-04-14 02:00] VITALS: BP 123/54
--- NOTE | 2021-04-14 05:13 | NUR ---
Patient in room ORTHO 4009. I have received report from Flora VELEZ and had the opportunity to ask questions and assume patient care.
[2021-04-14 06:00] VITALS: BP 160/59
--- NOTE | 2021-04-14 06:30 | NUR ---
Patient in room ORTHO 4009. I have received report from Isiah VELEZ with Ashlee VELEZ and had the opportunity to ask questions and assume patient care.
--- NOTE | 2021-04-14 06:30 | NUR ---
Problems reprioritized. Patient report given, questions answered & plan of care reviewed with Ashlee RN and student nurse.
--- NOTE | 2021-04-14 06:30 | NUR ---
Patient in room [facility]TH[facility] 4009. I have received report from Isiah VELEZ and had the opportunity to ask questions and assume patient care
[2021-04-14 06:56] LABS: BASOPHILS % (AUTO) 0.2 % (0-1); EOSINOPHILS % (AUTO) 0 % (0-6); HEMATOCRIT 35.6 % (35.0-45.0); LYMPHOCYTES % (AUTO) 10.8 % (21-51); MEAN CORPUSCULAR HGB CONC 33.7 g/dL (33.0-36.5); MEAN PLATELET VOLUME 8.5 FL (7.4-10.4); MONOCYTES # (AUTO) 0.6 X10'3 (0-0.9); MONOCYTES % (AUTO) 6.6 % (2-12); NEUTROPHILS # (AUTO) 7.4 X10'3 (1.8-7.7); NEUTROPHILS % (AUTO) 82.4 % (42-75); PLATELET COUNT 299 X10'3 (140-440); RED BLOOD COUNT 3.87 X10'6 (4.20-5.60); RED CELL DISTRIBUTION WIDTH 13.9 % (11.5-14.5)
[2021-04-14 07:03] LABS: ALANINE AMINOTRANSFERASE 146 U/L (12-78); ALBUMIN 2.1 G/DL (3.4-5.0); ALBUMIN/GLOBULIN RATIO 0.5 (1.1-1.5); ALKALINE PHOSPHATASE 325 IU/L (46-116); ANION GAP 9 (8-16); BILIRUBIN,TOTAL 2.2 MG/DL (0.1-1.0); BLOOD UREA NITROGEN 16 MG/DL (7-18); BUN/CREATININE RATIO 12.8 (6.6-38.0); CALCIUM 9.2 MG/DL (8.5-10.1); CHLORIDE 106 MMOL/L (99-107); CREATININE 1.25 MG/DL (0.40-0.90); GLUCOSE 160 MG/DL (70-104); MAGNESIUM 2.3 MG/DL (1.5-2.4); SODIUM 137 MMOL/L (135-145); TOTAL CARBON DIOXIDE 21.8 MMOL/L (24-32); TOTAL PROTEIN 6.2 G/DL (6.4-8.2); eGFR 43 ML/MIN
[2021-04-14 07:06] LABS: ASPARTATE AMINO TRANSFERASE 74 U/L (10-37); POTASSIUM 4.8 MMOL/L (3.5-5.1)
[2021-04-14] MEDS: lactobacillus rhamnosus 10,000 MMU CELLS/CAPSULE PO SCH (07:37)
[2021-04-14] MEDS: K and/or MAG REPLACEMENT MC SCH (07:38)
[2021-04-14 10:00] VITALS: BP 154/71
[2021-04-14] MEDS: HYDROcodone/acetaminophen 10/325mg tab PO PRN ×2 (10:09→11:22)
--- NOTE | 2021-04-14 10:10 | NUR ---
Malnutrition consult: Pt reports 2-14 lb wt loss with decreased appetite per malnutrition risk screen with RN. Pt with scaled wt hx of 120.3 kg taken 01/06/2020 with a standing scale, current scaled wt is 134.2 kg (190% IBW). Patient's diet has just been advanced to regular, pending first meal since diet advancement. Pt with no documented significant decrease in muscle strength or edema. Pt appears well developed well nourished per ED report. Pt currently lacks a minimum of two criteria for malnutrition. Will continue to follow. Addendum: 04/14/21 at [address] Amended: Links added.
[2021-04-14] MEDS ORDERED: AMOX-580 PO (11:49)
[2021-04-14] MEDS ORDERED: HYDR-3972 PO (11:49)
--- NOTE | 2021-04-14 14:00 | NUR ---
Pt is A & O x4 and in no apparent distress. pt verbalizes understanding of all DC orders. Pt understands the importance of following up with PCP and DR. Rosas. pt's Iv removed intact. pt understands she is to not shower for 48hrs after surgery, no heavy lifting and no bathing or swimming. Pt has family that will help her. Pt packed her belongings and was wheeled to the front where family picked her up.
== END 2021-04-14 14:00 | disposition home or self-care (01) | DRG 853 ==
LOC: ER 15:03 → ED HOLD 18:07 → SUR 3N 04-12 07:33 → ORTHO 4S 04-12 15:49
PROVIDERS: ADMIT Family Medicine; ATTEND Family Medicine
PROC: 0FC98ZZ Extirpation of Matter from Common Bile Duct, Via Natural or Artificial Opening Endoscopic (ICD-10-PCS; 2021-04-12)
PROC: 0F798DZ Dilation of Common Bile Duct with Intraluminal Device, Via Natural or Artificial Opening Endoscopic (ICD-10-PCS; 2021-04-12)
PROC: 8E0W4CZ Robotic Assisted Procedure of Trunk Region, Percutaneous Endoscopic Approach (ICD-10-PCS; 2021-04-13)
PROC: BF532Z0 Other Imaging of Gallbladder and Bile Ducts using Fluorescing Agent, Intraoperative (ICD-10-PCS; 2021-04-13)
PROC: 0FT44ZZ Resection of Gallbladder, Percutaneous Endoscopic Approach (ICD-10-PCS; principal; 2021-04-13 15:34)
DX: A41.9 Sepsis, unspecified organism (principal); N17.0 Acute kidney failure with tubular necrosis; K80.61 Calculus of gallbladder and bile duct with cholecystitis, unspecified, with obstruction; K80.31 Calculus of bile duct with cholangitis, unspecified, with obstruction; Z68.41 Body mass index [BMI] 40.0-44.9, adult; E11.9 Type 2 diabetes mellitus without complications; I10 Essential (primary) hypertension; Z20.822 Contact with and (suspected) exposure to COVID-19; Z96.651 Presence of right artificial knee joint; E66.01 Morbid (severe) obesity due to excess calories; I25.10 Atherosclerotic heart disease of native coronary artery without angina pectoris; E78.5 Hyperlipidemia, unspecified; E86.0 Dehydration; Z87.891 Personal history of nicotine dependence; Z79.84 Long term (current) use of oral hypoglycemic drugs; Z79.890 Hormone replacement therapy; Z88.2 Allergy status to sulfonamides; Z79.899 Other long term (current) drug therapy; Z79.82 Long term (current) use of aspirin
CPT/HCPCS: 36415; 71045; 74176; 76700; 80053; 81001; 82948; 83036; 83605; 83690; 83735; 84145; 85025; 85730; 87040; 87081; 87635; 88304; 93005; 96374; 96375; 99285; A4215; A4618; A7000; C1769; C2625; C9399; C9803; G0378; J0360; J0780; J1100; J1170; J1200; J1610; J1650; J1815; J2001; J2250; J2270; J2405; J2543; J2704; J2710; J3010; J3490; J7030; J7040; J7120; Q0177; Q9967

== ENCOUNTER 2021-06-04 08:27 | Emergency (ER) | payer MEDICARE ==
[~2021-06-04] VITALS: Ht 180.3 cm; Wt 125.0 kg
[~2021-06-04 08:27] MED LIST changes: +AMOX-580 PO; +ASCO500C17 PO; -ASPI-100 PO; +ASPI81TA47 PO; -ATOR40TA71 PO; +HYDR-3972 PO; +LEVO88TA39 PO; +METF-436 PO; -METF-900 PO
[2021-06-04 09:51] LABS: ALANINE AMINOTRANSFERASE 65 U/L (12-78); ALBUMIN 3.3 G/DL (3.4-5.0); ALBUMIN/GLOBULIN RATIO 0.7 (1.1-1.5); ALKALINE PHOSPHATASE 174 IU/L (46-116); AMYLASE 25 U/L (25-115); ANION GAP 10 (8-16); ASPARTATE AMINO TRANSFERASE 36 U/L (10-37); BILIRUBIN,TOTAL 0.7 MG/DL (0.1-1.0); BLOOD UREA NITROGEN 11 MG/DL (7-18); BUN/CREATININE RATIO 8.9 (6.6-38.0); CALCIUM 10.9 MG/DL (8.5-10.1); CHLORIDE 104 MMOL/L (99-107); CREATININE 1.23 MG/DL (0.40-0.90); GLUCOSE 173 MG/DL (70-104); LIPASE 210 U/L (73-393); POTASSIUM 4.5 MMOL/L (3.5-5.1); SODIUM 140 MMOL/L (135-145); TOTAL CARBON DIOXIDE 26.1 MMOL/L (24-32); TOTAL PROTEIN 8.1 G/DL (6.4-8.2); eGFR 44 ML/MIN
[2021-06-04 09:54] LABS: BASOPHILS % (AUTO) 0.2 % (0-1); EOSINOPHILS # (AUTO) 0.3 X10'3 (0-0.9); EOSINOPHILS % (AUTO) 3.3 % (0-6); HEMATOCRIT 40.6 % (35.0-45.0); HEMOGLOBIN 13.8 g/dl (12.0-16.0); LYMPHOCYTES % (AUTO) 34.2 % (21-51); MEAN CORPUSCULAR HEMOGLOBIN 30.6 PG (27.0-31.0); MEAN CORPUSCULAR HGB CONC 34.1 g/dL (33.0-36.5); MEAN CORPUSCULAR VOLUME 89.7 FL (78-98); MEAN PLATELET VOLUME 9.1 FL (7.4-10.4); MONOCYTES # (AUTO) 0.6 X10'3 (0-0.9); MONOCYTES % (AUTO) 6.6 % (2-12); NEUTROPHILS # (AUTO) 4.9 X10'3 (1.8-7.7); NEUTROPHILS % (AUTO) 55.7 % (42-75); PLATELET COUNT 331 X10'3 (140-440); RED BLOOD COUNT 4.53 X10'6 (4.20-5.60); RED CELL DISTRIBUTION WIDTH 14.2 % (11.5-14.5); WHITE BLOOD COUNT 8.9 X10'3 (4.5-11.0)
[2021-06-04 10:20] LABS: CLARITY,URINE CLOUDY (Clear); COLOR,URINE YELLOW (Yellow); GLUCOSE, URINE NEGATIVE (Neg); KETONES,URINE NEGATIVE (Neg); LEUKOCYTE ESTERASE ,URINE NEGATIVE (Neg); NITRITES, URINE NEGATIVE (Neg); OCCULT BLOOD,URINE NEGATIVE (Neg); PROTEIN,URINE 30 mg/dl (Neg); UA COLLECTION TYPE CLN CATCH MIDSTREAM; UROBILINOGEN,URINE 0.2 E.U/dL (0.2-1.0)
[2021-06-04] MEDS ORDERED: iohexol 350MG/ML 100ml bottle IV ONE (10:20)
[2021-06-04 10:21] LABS: URINE HCG NEGATIVE (NEG)
[2021-06-04 10:29] LABS: BACTERIA,URINE FEW /HPF (Neg); CAL OXALATE CRYSTALS 4+ /HPF (NEGATIVE); HYALINE CASTS >30 /LPF (NEGATIVE); RBC,URINE 0-2 /HPF (0-2); SQUAMOUS EPITHELIAL CELL,UR MODERATE /LPF (FEW); WBC,URINE 0-4 /HPF (0-4)
[2021-06-04 11:37] VITALS: BP 119/70
[2021-06-04] MEDS ORDERED: CIPR-202 PO (12:00)
[2021-06-04] MEDS ORDERED: ONDA8TAB13 PO (12:03)
[2021-06-04] MEDS ORDERED: OMEP40CA21 PO (12:03)
== END 2021-06-04 12:49 | disposition home or self-care (01) ==
LOC: ER 08:27
DX: K85.90 Acute pancreatitis without necrosis or infection, unspecified (principal); Z20.822 Contact with and (suspected) exposure to COVID-19; K57.92 Diverticulitis of intestine, part unspecified, without perforation or abscess without bleeding; I25.10 Atherosclerotic heart disease of native coronary artery without angina pectoris; I10 Essential (primary) hypertension; E11.9 Type 2 diabetes mellitus without complications; Z87.81 Personal history of (healed) traumatic fracture; Z88.8 Allergy status to other drugs, medicaments and biological substances; Z79.82 Long term (current) use of aspirin; Z79.899 Other long term (current) drug therapy; Z79.2 Long term (current) use of antibiotics
CPT/HCPCS: 36415; 74176; 80053; 81001; 81025; 82150; 83690; 85025; 87635; 99285; C9803; Q9967

== ENCOUNTER 2024-01-27 11:50 | Emergency (ER) | payer MEDICARE ==
[~2024-01-27] VITALS: Ht 180.3 cm; Wt 121.4 kg
[~2024-01-27 11:50] MED LIST changes: +ONDA8TAB13 PO
[2024-01-27] MEDS: ondansetron/PF 4mg/2ml inj IV ONE (13:06)
[2024-01-27] MEDS: diltiazem 5mg/ml 5ml inj. IV ONE (13:09)
[2024-01-27] MEDS: ringers solution, lacted 1,000 ML IV ONE (13:10)
[2024-01-27 13:23] LABS: BASOPHILS % (AUTO) 0.1 % (0-1); EOSINOPHILS % (AUTO) 0.2 % (0-6); HEMOGLOBIN 14.4 g/dl (12.0-16.0); LYMPHOCYTES # (AUTO) 0.5 X10'3 (1.1-4.8); LYMPHOCYTES % (AUTO) 6.1 % (21-51); MEAN CORPUSCULAR HEMOGLOBIN 30.3 PG (27.0-31.0); MEAN CORPUSCULAR HGB CONC 32.6 g/dL (33.0-36.5); MEAN CORPUSCULAR VOLUME 92.7 FL (78-98); MEAN PLATELET VOLUME 9.6 FL (7.4-10.4); MONOCYTES # (AUTO) 0.3 X10'3 (0-0.9); MONOCYTES % (AUTO) 3.7 % (2-12); NEUTROPHILS # (AUTO) 6.7 X10'3 (1.8-7.7); NEUTROPHILS % (AUTO) 89.9 % (42-75); PLATELET COUNT 207 X10'3 (140-440); RED BLOOD COUNT 4.74 X10'6 (4.20-5.60); RED CELL DISTRIBUTION WIDTH 14.6 % (11.5-14.5); WHITE BLOOD COUNT 7.5 X10'3 (4.5-11.0)
[2024-01-27 13:33] LABS: ALANINE AMINOTRANSFERASE 581 U/L (12-78); ALBUMIN 3.9 G/DL (3.4-5.0); ALKALINE PHOSPHATASE 498 IU/L (46-116); ANION GAP 14 (8-16); ASPARTATE AMINO TRANSFERASE 879 U/L (10-37); BILIRUBIN,TOTAL 3.4 MG/DL (0.1-1.0); BLOOD UREA NITROGEN 18 MG/DL (7-18); BUN/CREATININE RATIO 14.6 (10.0-20.0); CHLORIDE 103 MMOL/L (99-107); CREATININE 1.23 MG/DL (0.40-0.90); GLUCOSE 206 MG/DL (70-104); POTASSIUM 4.2 MMOL/L (3.5-5.1); SODIUM 140 MMOL/L (135-145); TOTAL CARBON DIOXIDE 22.9 MMOL/L (24-32); TOTAL PROTEIN 7.9 G/DL (6.4-8.2); eCRCL 48 ML/MIN; eGFR 43 ML/MIN
[2024-01-27 13:41] LABS: LIPASE 42 U/L (16-77); PRO BRAIN NATRIURETIC PEPTIDE 1719 PG/ML (0-125)
[2024-01-27 14:39] LABS: BILIRUBIN,URINE MODERATE (Neg); CLARITY,URINE CLEAR (Clear); COLOR,URINE YELLOW (Yellow); GLUCOSE, URINE NEGATIVE (Neg); KETONES,URINE TRACE mg/dl (Neg); LEUKOCYTE ESTERASE ,URINE NEGATIVE (Neg); NITRITES, URINE NEGATIVE (Neg); OCCULT BLOOD,URINE NEGATIVE (Neg); PH,URINE 5.5 (4.8-8.0); PROTEIN,URINE NEGATIVE (Neg)
[2024-01-27 14:48] LABS: UA COLLECTION TYPE CLN CATCH MIDSTREAM
[2024-01-27 16:09] VITALS: BP 115/90; PULSE 105; RESP 12; TEMP 97; O2SAT 96
== END 2024-01-27 16:19 | disposition home or self-care (01) ==
LOC: ER 11:50
DX: B17.9 Acute viral hepatitis, unspecified (principal); I25.10 Atherosclerotic heart disease of native coronary artery without angina pectoris; I10 Essential (primary) hypertension; E11.9 Type 2 diabetes mellitus without complications; Z95.0 Presence of cardiac pacemaker; Z88.2 Allergy status to sulfonamides; Z79.2 Long term (current) use of antibiotics; Z79.82 Long term (current) use of aspirin; Z79.84 Long term (current) use of oral hypoglycemic drugs; Z79.899 Other long term (current) drug therapy
CPT/HCPCS: 36415; 71045; 74176; 80053; 81003; 83690; 83880; 84484; 85025; 86709; 93005; 96361; 96374; 96375; 99285; J2405; J3490; J7030; J7120

== ENCOUNTER 2025-02-04 09:11 | Outpatient (CLI) | payer MEDICARE ==
[~2025-02-04 09:11] MED LIST changes: +ONDA-245 PO; -ONDA8TAB13 PO
--- NOTE | 2025-02-04 11:01 | RADIOLOGY REPORT ---
INDICATION: ABDOMINAL MASS TECHNIQUE: Multiple real-time sonographic images of the abdomen were obtained. COMPARISON: ULTRASOUND OF ABDOMEN on DOS: 04/11/21 FINDINGS: The liver is increased in echogenicity. The liver measures 18cm. No intrahepatic biliary d uctal dilatation is noted. Gallbladder is surgically absent. The common duct measures 0.4 cm and is unremarkable. The right kidney measures 11.0cm. No hydronephrosis. The left kidney measures 11.2cm. No hydronephr osis. Increased echogenicity of the bilateral kidneys suggestive of chronic medical renal disease. Cardoso ggestion of moderate bilateral hydronephrosis. The spleen measures 12 cm, within normal limits. The echogenicity is within normal limits. The pancreas is not well visualized due to obscuration from bowel gas. The visualized portions of the IVC and aorta are grossly unremarkable. IMPRESSION: Status post cholecystectomy. Suggestion of moderate bilateral hydronephrosis. Echogenic bilateral kid neys suggestive of chronic medical renal disease. Hepatic steatosis and hepatomegaly.
== END 2025-02-04 23:59 | disposition home or self-care (01) ==
LOC: RAD 09:11
PROVIDERS: ATTEND Family Medicine
DX: K76.0 Fatty (change of) liver, not elsewhere classified (principal); R19.07 Generalized intra-abdominal and pelvic swelling, mass and lump; Z90.49 Acquired absence of other specified parts of digestive tract; R16.0 Hepatomegaly, not elsewhere classified
CPT/HCPCS: 76700